=== PATIENT | female | born 1990 | race African-American/Black ===

== ENCOUNTER 2017-08-10 21:01 | Emergency (ER) | payer OTHER ==
[~2017-08-10] VITALS: Ht 157.5 cm; Wt 56.7 kg
[2017-08-10 21:48] VITALS: BP 106/67
--- NOTE | 2017-08-10 21:48 | NUR ---
Pt seen by MD. Pt stable for discharge per MD. Pt given ACI. Pt verbalized understanding of dc instructions. Pt ambulated out of er with steady gait
== END 2017-08-10 21:49 | disposition home or self-care (01) ==
LOC: ER 21:03
DX: S39.012A Strain of muscle, fascia and tendon of lower back, initial encounter (principal); S16.1XXA Strain of muscle, fascia and tendon at neck level, initial encounter; V43.62XA Car passenger injured in collision with other type car in traffic accident, initial encounter; Y92.410 Unspecified street and highway as the place of occurrence of the external cause; Y93.89 Activity, other specified; Y99.8 Other external cause status
CPT/HCPCS: 99283; A4663